=== PATIENT | female | born 1965 | race African-American/Black ===

== ENCOUNTER 2017-02-15 16:42 | Emergency (ER) | payer SELFPAY ==
[~2017-02-15 16:42] MED LIST: IBUP800T23 PO; LISI20 PO; METF-324 PO; METH750T2 PO
[2017-02-15 16:43] VITALS: BP 126/92; PULSE 91; RESP 14; TEMP 97.9; O2SAT 99
[2017-02-15] MEDS ORDERED: ROBA750T PO (18:18)
[2017-02-15] MEDS ORDERED: METF500T4 PO (18:18)
[2017-02-15] MEDS ORDERED: LISI-515 PO (18:18)
--- NOTE | 2017-02-15 18:31 | PD ---
HPI Chief Complaint: Skin Problem Time Seen by Provider: 18:31 Travel History International Travel<30 days: No Contact w/Intl Traveler<30days: No Traveled to known affect area: No History of Present Illness HPI 51-year-old female presents to emergency Department with complaint of ingrown toenail to left great toe that has been painful on and off for the last 3 weeks. Denies fever, vomiting. Denies erythema, edema to the toe. Denies drainage from the site of the toenail. The patient is also requesting a prescription refill on her lisinopril that she has not taken for 2 weeks. She has no other medical complaints. No known allergies. No other modifying factors or associated signs and symptoms. History Past Medical Histgory LMP: END OF JANUARY 2017 Hx Cancer: No Hx Chemotherapy: No Hx Radiation Therapy: No Social History Alcohol Use: No Tobacco Use: Yes (1/2 PPD) Allergies-Medications (Allergen,Severity, Reaction): Coded Allergies: No Known Allergies (Verified , 02/15/17) Reported Meds & Prescriptions Reported Meds & Active Scripts Active Reported Robaxin (Methocarbamol) 750 Mg Tab 750 Mg PO BID PRN Metformin ER (Metformin HCl) 500 Mg Marcela 500 Mg PO BID With evening meal Lisinopril 20 Mg Tab 20 Mg PO DAILY Review of Systems Except as stated in HPI: all other systems reviewed are Neg Physical Exam Narrative GENERAL: Well-nourished, well-developed female patient, in no acute distress SKIN: Warm and dry. Left great toe is without erythema, edema; no drainage noted; sensory intact; less than 3 second cap refill; tenderness on pronation to the medial aspect of the toenail. No signs of infection. HEAD: Atraumatic. Normocephalic. EYES: Pupils equal and round. No scleral icterus. No injection or drainage. ENT: Mucosa pink and moist. Airway patent. NECK: Trachea midline. CARDIOVASCULAR: Regular rate. RESPIRATORY: No accessory muscle use. GASTROINTESTINAL: Obese. MUSCULOSKELETAL: No obvious deformities. No clubbing. No cyanosis. No edema. NEUROLOGICAL: Awake and alert. Oriented 3. No obvious cranial nerve deficits. Motor grossly within normal limits. Normal speech. PSYCHIATRIC: Appropriate mood and affect; insight and judgment normal. Data Data Last Documented VS Vital Signs Date Time Temp Pulse Resp B/P Pulse Ox O2 Delivery O2 Flow Rate FiO2 02/15/17 16:43 97.9 91 14 126/92 99 MDM Medical Screen Exam Complete: Yes Emergency Medical Condition: No Differential Diagnosis Ingrown toenail, paronychia, medication refill Narrative Course 51-year-old female with ingrown toenail to the left great toe. No signs of infection. Patient is also requesting medication refill on lisinopril. She last took lisinopril 2 weeks ago. Her blood pressure is 126/92 and I do not feel comfortable giving the patient a prescription for blood pressure medication with a normal blood pressure. Discussed reasons for the patient to return to the emergency department. Instructed patient to follow up at [facility] and/or primary care provider. Vital signs are stable and the patient is stable for outpatient follow-up and treatment. The patient has no urgent or emergent medical complaints. There is no emergent or urgent medical need at this time. I instructed the patient to follow up with their primary care provider. A medical screening exam was performed: At the time of evaluation the presenting medical condition was determined not to be of an emergent nature. The patient was given the option of receiving additional care, but declined. Patient was given options for additional community resources from which to obtain care. The Patient Has Been advised to seek medical attention for their presenting complaint. The patient has been advised to return to the ER at any time if an emergent condition develops. Primary Impression: Encounter for medical screening examination Condition: Stable Margret Castillo Feb 15, 2017 18:31
== END 2017-02-15 18:42 | disposition left against medical advice (07) ==
LOC: NEPK 16:42
DX: L60.0 Ingrowing nail (principal)
CPT/HCPCS: 99281

== ENCOUNTER 2018-07-31 01:24 | Observation (INO) ==
[2018-07-31] MEDS ORDERED: Morphine Sulfate Inj 8 MG/ML Vial IV.PUSH ONE (02:14)
[2018-07-31] MEDS ORDERED: Sod Chloride 0.9% Inj 1,000 ML IV.SIG SCH (02:15)
[2018-07-31 02:40] LABS: Baso % (Auto) 0.7 % (0.0-2.0); Eos # (Auto) 0.1 th/mm3 (0.0-0.4); Eos % (Auto) 1.3 % (0.0-4.0); Hematocrit 43.3 % (35.0-46.0); Hemoglobin 14.3 gm/dL (11.6-15.3); Lymph # (Auto) 2.5 th/mm3 (1.0-4.8); Lymph % (Auto) 42.4 % (9.0-44.0); Mean Corpuscular Hemoglobin 29.1 pg (27.0-34.0); Mean Corpuscular Volume 88.3 fL (80.0-100.0); Mono # (Auto) 0.3 th/mm3 (0.0-0.9); Mono % (Auto) 4.3 % (0.0-8.0); Neut # (Auto) 3.1 th/mm3 (1.8-7.7); Neut % (Auto) 51.3 % (16.0-70.0); Platelet Count 272 th/mm3 (150-450); Red Cell Distribution Width 14.4 % (11.6-17.2)
--- NOTE | 2018-07-31 02:47 | ED ---
HPI General Chief Complaint: Abdominal Pain Stated Complaint: n/v/abd pain Time Seen by Provider: 07/31/18 02:12 Source: patient Mode of arrival: ambulatory Limitations: no limitations History of Present Illness HPI narrative: 52-year-old female came to the emergency room with history of severe abdominal pain that has been in tractable for past 48 hours. Patient was in the emergency room 2 days back and was evaluated and diagnosed with acute pancreatitis. He was discharged home on medications. However patient says that she has been unable to keep the medications down since she cannot stop vomiting. She appeared to be in significant distress and crying. She says the pain is all over her abdomen without radiation. No aggravating or relieving factors identified. Patient has history of hypertension and diabetes and does not drink alcohol. Related Data Home Medications Medication Instructions Recorded Confirmed losartan 50 mg PO DAILY 07/29/18 07/31/18 omeprazole 20 mg PO DAILY 07/29/18 07/31/18 rosuvastatin 5 mg PO DAILY 07/31/18 07/31/18 Previous Rx's Medication Instructions Recorded alum-mag hydroxide-simeth [Maalox 5 ml PO Q6H PRN #355 ml 07/29/18 Maximum Strength] dicyclomine 10 mg PO TID PRN #20 cap 07/29/18 famotidine-Ca carb-mag hydrox 1 tab PO DAILY PRN #30 tab 07/29/18 [Pepcid Complete] ondansetron [Zofran ODT] 4 mg PO Q6-8H PRN #20 tab 07/29/18 Allergies Allergy/AdvReac Type Severity Reaction Status Date / Time No Known Allergies Allergy Unverified 07/31/18 01:26 Review of Systems ROS: all other systems reviewed are negative [facility] Medical History Medical History Diabetes (Acute) Gastric ulcer (Acute) Hypertension (Acute) Surgical History Surgical History Hx of cholecystectomy (Acute) Social History Social History Substance History: No History of Abuse Second Hand Smoke Exposure: Yes Smoking Status: Current every day smoker Tobacco Type: Cigarettes How Often Do You Have a Drink Containing Alcohol: Never Recent Travel in [facility] within the Last 8 Weeks: No Recent Out of Country Travel within the Last 8 Weeks: No Immunization History Tetanus Immunization: Unsure Exam Narrative Exam Narrative: GENERAL: Awake, alert, morbidly obese, significant distress SKIN: Focused skin assessment warm/dry. HEAD: Atraumatic. Normocephalic. EYES: Pupils equal and round. No scleral icterus. No injection or drainage. ENT: No nasal bleeding or discharge. Mucous membranes pink and moist. NECK: Trachea midline. No JVD. CARDIOVASCULAR: Regular rate and rhythm. No murmur appreciated. RESPIRATORY: No accessory muscle use. Clear to auscultation. Breath sounds equal bilaterally. GASTROINTESTINAL: Abdomen soft, non-tender, nondistended. Hepatic and splenic margins not palpable. MUSCULOSKELETAL: No obvious deformities. No clubbing. No cyanosis. No edema. NEUROLOGICAL: Awake and alert. No obvious cranial nerve deficits. Motor grossly within normal limits. Normal speech. PSYCHIATRIC: Appropriate mood and affect; insight and judgment normal. Course Initial Documented Vital Signs Temperature 97.8 F 07/31/18 01:28 Pulse Rate 96 H 07/31/18 01:28 Respiratory Rate 20 07/31/18 01:28 Blood Pressure 144/83 H 07/31/18 01:28 Pulse Oximetry 95 07/31/18 01:28 Last Documented Vital Signs Temperature 97.5 F L 08/01/18 08:00 Pulse Rate 81 08/01/18 12:00 Respiratory Rate 18 08/01/18 12:00 Blood Pressure 138/75 08/01/18 12:00 Pulse Oximetry 95 08/01/18 12:00 Medical Decision Making [facility] Narrative Medical decision making narrative: 2:46 AM patient is being treated for intractable pain and vomiting and outpatient treatment failure. I have ordered pain medication here but patient would require admission for this. I discussed the case with the hospitalist who has accepted the patient. Awaiting for blood test result. Patient is aware of this plan and is accepted. Medical Screen Exam Complete: Yes Emergency Medical Condition: Yes Lab Data Result diagrams: 08/01/18 05:32 08/01/18 07:31 Lab Results 07/31/18 07/31/18 08/01/18 Range/Units 00:16 00:16 05:32 WBC 6.0 4.9 (4.0-11.0) th/mm3 RBC 4.90 4.85 (4.00-5.30) mil/mm3 Hgb 14.3 14.2 (11.6-15.3) gm/dL Hct 43.3 42.5 (35.0-46.0) % MCV 88.3 87.6 (80.0-100.0) fL MCH 29.1 29.3 (27.0-34.0) pg MCHC 33.0 33.5 (32.0-36.0) % RDW 14.4 14.5 (11.6-17.2) % Plt Count 272 258 (150-450) th/mm3 MPV 8.0 8.2 (7.0-11.0) fL Neut % (Auto) 51.3 46.0 (16.0-70.0) % Lymph % (Auto) 42.4 43.1 (9.0-44.0) % [place] % (Auto) 4.3 7.1 (0.0-8.0) % Eos % (Auto) 1.3 3.0 (0.0-4.0) % Baso % (Auto) 0.7 0.8 (0.0-2.0) % Neut # (Auto) 3.1 2.3 (1.8-7.7) th/mm3 Lymph # (Auto) 2.5 2.1 (1.0-4.8) th/mm3 [place] # (Auto) 0.3 0.3 (0.0-0.9) th/mm3 Eos # (Auto) 0.1 0.1 (0.0-0.4) th/mm3 Baso # (Auto) 0.0 0.0 (0.0-0.2) th/mm3 WBC Differential . . Differential Comment Auto diff final Auto diff final Hematology Comments Sodium 140 (136-145) meq/L Potassium 3.9 D (3.5-5.1) meq/L Chloride 105 (98-107) meq/L Carbon Dioxide 28.4 (21.0-32.0) meq/L Anion Gap 7 (5-15) meq/L BUN 11 (7-18) mg/dL Creatinine 0.82 (0.50-1.00) mg/dL Estimated GFR 88 L (>89) mL/min Random Glucose 95 (74-106) mg/dL Calcium 8.2 L (8.5-10.1) mg/dL Total Bilirubin 0.5 (0.2-1.0) mg/dL AST 14 L (15-37) U/L ALT 16 (10-53) U/L Alkaline Phosphatase 82 (45-117) U/L Total Protein 7.2 (6.4-8.2) g/dL Albumin 3.3 L (3.4-5.0) g/dL Lipase 937 H (73-393) U/L 08/01/18 Range/Units 07:31 WBC (4.0-11.0) th/mm3 RBC (4.00-5.30) mil/mm3 Hgb (11.6-15.3) gm/dL Hct (35.0-46.0) % MCV (80.0-100.0) fL MCH (27.0-34.0) pg MCHC (32.0-36.0) % RDW (11.6-17.2) % Plt Count (150-450) th/mm3 MPV (7.0-11.0) fL Neut % (Auto) (16.0-70.0) % Lymph % (Auto) (9.0-44.0) % [place] % (Auto) (0.0-8.0) % Eos % (Auto) (0.0-4.0) % Baso % (Auto) (0.0-2.0) % Neut # (Auto) (1.8-7.7) th/mm3 Lymph # (Auto) (1.0-4.8) th/mm3 [place] # (Auto) (0.0-0.9) th/mm3 Eos # (Auto) (0.0-0.4) th/mm3 Baso # (Auto) (0.0-0.2) th/mm3 WBC Differential Differential Comment Hematology Comments Sodium 140 (136-145) meq/L Potassium 3.7 (3.5-5.1) meq/L Chloride 105 (98-107) meq/L Carbon Dioxide 26.4 (21.0-32.0) meq/L Anion Gap 9 (5-15) meq/L BUN 10 (7-18) mg/dL Creatinine 0.75 (0.50-1.00) mg/dL Estimated GFR Greater than 89 (>89) mL/min Random Glucose 61 L (74-106) mg/dL Calcium 8.3 L (8.5-10.1) mg/dL Total Bilirubin 0.7 (0.2-1.0) mg/dL AST 27 (15-37) U/L ALT 20 (10-53) U/L Alkaline Phosphatase 79 (45-117) U/L Total Protein 6.9 (6.4-8.2) g/dL Albumin 3.3 L (3.4-5.0) g/dL Lipase 85 (73-393) U/L Discharge Plan Discharge Disposition Patient Disposition: 30 Still Patient Discharge Condition Condition: Stable Discharge Order Discharge Orders: Discharge Order (Routine); Ordered 08/01/18 Ordered By: Keena Kelsey Physicians Team ED Provider: Bertha Huggins Primary Care Provider: UNKNOWN, Attending Provider: Marcello Marsh Status ED Status: Left Department Discharge Information Discharge Date/Time: 07/31/18 03:55
[2018-07-31] MEDS ORDERED: HYDROmorphone PF Inj 2 MG/ML Vial IV.PUSH ONE (03:06)
[2018-07-31 03:08] LABS: Alanine Aminotransferase 16 U/L (10-53); Albumin 3.3 g/dL (3.4-5.0); Alkaline Phosphatase 82 U/L (45-117); Anion Gap 7 meq/L (5-15); Aspartate Aminotransferase 14 U/L (15-37); Blood Urea Nitrogen 11 mg/dL (7-18); Calcium 8.2 mg/dL (8.5-10.1); Carbon Dioxide 28.4 meq/L (21.0-32.0); Chloride 105 meq/L (98-107); Glomerular Filtration Rate 88 mL/min (>89); Glucose,Random 95 mg/dL (74-106); Lipase 937 U/L (73-393); Potassium 3.9 meq/L (3.5-5.1); Sodium 140 meq/L (136-145); Total Protein 7.2 g/dL (6.4-8.2)
[2018-07-31] MEDS ORDERED: Pantoprazole Inj 40 MG Vial IV.PUSH ONE (03:23)
[2018-07-31] MEDS ORDERED: Acetaminophen 325 MG Tablet PO PRN (03:24)
[2018-07-31] MEDS ORDERED: Bisacodyl 10 MG Supp RECTAL PRN (03:24)
[2018-07-31] MEDS ORDERED: HYDROmorphone PF Inj 1 MG/ML Ampul IV.PUSH PRN (03:30)
--- NOTE | 2018-07-31 03:54 | P.HPIM ---
History of Present Illness Primary Care Physician: UNKNOWN History of Present Illness: This is a 52-year-old female with a PMH of HTN and Tobacco Abuse who presented to ER with complaints of severe abdominal pain x2 days. Seen in ER on 07/29/18 for similar complaints, found to have pancreatitis w/ Lipase 688, CT Abd/Pelvis w/ nonspecific hypodense liver lesion, otherwise negative, ultimately d/c'd from ER, however returns now w/ ongoing pain. Pain is epigastric, constant, worse after eating, non-radiating, associated w/ nausea/vomiting. On arrival, BP 144/83, HR 96, O2 sat 95% on RA, Afebrile. Lipase 937. S/p Morphine IV in ER w/ minimal improvement. - Diagnosis (1) Pancreatitis (2) Intractable abdominal pain (3) Tobacco abuse Review of Systems PAST FAMILY HISTORY: Reviewed. No h/o DM or CAD All other systems reviewed negative except as stated in HPI [facility] - History History Provided By: Patient - Medical History Medical History: Medical History (Last Reviewed 07/31/18 @ 02:45 by Bertha Huggins MD) Diabetes Gastric ulcer Hypertension - Surgical History Surgical History: Surgical History (Last Reviewed 07/31/18 @ 02:45 by Bertha Huggins MD) Hx of cholecystectomy - Tobacco History Second Hand Smoke Exposure: Yes Tobacco Use In Past 30 Days: Yes Smoking Status: Current every day smoker Tobacco Type: Cigarettes - Alcohol History How Often Do You Have a Drink Containing Alcohol: Never - Substance Use History Substance History: No History of Abuse - Travel History Recent Travel in the [place] Within the Last 8 Weeks: No Recent Travel Out of the Country Within the Last 8 Weeks: No - Immunization History Tetanus Immunization: Unsure Medications and Allergies Active Medications: Active Medications Acetaminophen (Tylenol) 650 mg PO Q4H PRN PRN Reason: Temp > 100.4 Al Hydroxide/Mg Hydroxide (Milk Of Magnesia Liq) 30 ml PO Q12H PRN PRN Reason: Mild Constipation Bisacodyl (Dulcolax Supp) 10 mg RECTAL DAILY PRN PRN Reason: SEVERE CONSITIPATION Hydromorphone HCl (Dilaudid Pf Inj) 1 mg IV.PUSH Q4H PRN PRN Reason: PAIN 6-10 Sodium Chloride (Ns Inj) 1,000 mls @ 100 mls/hr IV.CONT .Q10H MARIXA Lactulose (Lactulose Liq) 30 ml PO DAILY PRN PRN Reason: SEVERE CONSITIPATION Ondansetron HCl (Zofran Inj) 4 mg IV.PUSH Q6H PRN PRN Reason: NAUSEA OR VOMITING Senna/Docusate Sodium (Holly-Colace) 1 tab PO BID [facility] Sennosides (Senokot) 17.2 mg PO Q12H PRN PRN Reason: Moderate Constipation Allergies Allergy/AdvReac Type Severity Reaction Status Date / Time No Known Allergies Allergy Unverified 07/31/18 01:26 Home Medications Medication Instructions Recorded Confirmed Type losartan 50 mg PO DAILY 07/29/18 07/31/18 History omeprazole 20 mg PO DAILY 07/29/18 07/31/18 History rosuvastatin 5 mg PO DAILY 07/31/18 07/31/18 History Exam Vital signs: Vital Signs 07/31/18 01:28 07/31/18 03:17 Temperature 97.8 F Pulse Rate 96 H 70 Respiratory Rate 20 18 Blood Pressure 144/83 H 140/80 Pulse Oximetry 95 95 Intake & Output 07/30/18 07/30/18 07/31/18 06:59 18:59 06:59 Weight 117.934 kg Narrative: PE: GENERAL: Middle-aged black female in no acute distress. SKIN: Focused skin assessment warm and dry. HEENT: PERRLA, EOMI. No scleral icterus or conjunctival pallor. No lid lag or facial droop. CARDIOVASCULAR: Regular rate and rhythm. No obvious murmurs to auscultation. No chest tenderness to palpation. RESPIRATORY: No obvious rhonchi or wheezing. Clear to auscultation. Breath sounds equal bilaterally. GASTROINTESTINAL: Abdomen soft, epigastric tenderness to palpation, nondistended. BS normal. MUSCULOSKELETAL: Extremities without clubbing, cyanosis, or edema. No obvious deformities. NEUROLOGICAL: Awake, alert and oriented x4. No focal neurologic deficits. Moving both upper and lower extremities spontaneously. PSYCHIATRIC: Appropriate mood and affect. Insight and judgment normal. Results - Labs CBC & Chem 7: 07/31/18 00:16 07/31/18 00:16 Labs: Short CBC 07/31/18 Range/Units 00:16 WBC 6.0 (4.0-11.0) th/mm3 Hgb 14.3 (11.6-15.3) gm/dL Hct 43.3 (35.0-46.0) % Plt Count 272 (150-450) th/mm3 BMP 07/31/18 00:16 Sodium 140 Potassium 3.9 D Chloride 105 Carbon Dioxide 28.4 BUN 11 Creatinine 0.82 Calcium 8.2 L Liver Function 07/31/18 Range/Units 00:16 Total Bilirubin 0.5 (0.2-1.0) mg/dL AST 14 L (15-37) U/L ALT 16 (10-53) U/L Alkaline Phosphatase 82 (45-117) U/L Albumin 3.3 L (3.4-5.0) g/dL Caprini VTE Risk Assessment Caprini VTE Risk Assessment: No/Low Risk (score <= 1) Caprini Risk Assessment Model: Point Value = 1 Point Value = 2 Point Value = 3 Point Value = 5 Age 41-60 Minor surgery BMI > 25 kg/m2 Swollen legs Varicose veins or History of unexplained or recurrent spontaneous Oral contraceptives or hormone replacement Sepsis (< 1 month) Serious lung disease, including pneumonia (< 1 month) Abnormal pulmonary function Acute myocardial infarction Congestive heart failure (< 1 month) History of inflammatory bowel disease Medical patient at bed rest Age 61-74 Arthroscopic surgery Major open surgery (> 45 min) Laparoscopic surgery (> 45 min) Malignancy Confined to bed (> 72 hours) Immobilizing plaster cast Central venous access Age >= 75 History of VTE Family history of VTE Factor V Leiden Prothrombin [id number] Lupus anticoagulant Anticardiolipin antibodies Elevated serum homocysteine Heparin-induced thrombocytopenia Other congenital or acquired thrombophilia Stroke (< 1 month) Elective arthroplasty Hip, pelvis, or leg fracture Acute spinal cord injury (< 1 month) Prophylaxis Regimen: Total Risk Factor Score Risk Level Prophylaxis Regimen 0-1 Low Early ambulation 2 Moderate Order ONE of the following: *Sequential Compression Device (SCD) *Heparin 5000 units SQ BID 3-4 Higher Order ONE of the following medications: *Heparin 5000 units SQ TID *Enoxaparin/Lovenox 40 mg SQ daily (WT < 150 kg, CrCl > 30 mL/min) *Enoxaparin/Lovenox 30 mg SQ daily (WT < 150 kg, CrCl > 10-29 mL/min) *Enoxaparin/Lovenox 30 mg SQ BID (WT < 150 kg, CrCl > 30 mL/min) AND/OR *Sequential Compression Device (SCD) 5 or more Highest Order ONE of the following medications: *Heparin 5000 units SQ TID (Preferred with Epidurals) *Enoxaparin/Lovenox 40 mg SQ daily (WT < 150 kg, CrCl > 30 mL/min) *Enoxaparin/Lovenox 30 mg SQ daily (WT < 150 kg, CrCl > 10-29 mL/min) *Enoxaparin/Lovenox 30 mg SQ BID (WT < 150 kg, CrCl > 30 mL/min) AND *Sequential Compression Device (SCD) Assessment and Plan - Assessment (1) Pancreatitis Code(s): K85.90 - Acute pancreatitis without necrosis or infection, unspecified Status: Acute (2) Intractable abdominal pain Code(s): R10.9 - Unspecified abdominal pain Status: Acute (3) Tobacco abuse Code(s): Z72.0 - Tobacco use Status: Acute - Plan A/P: 1. Pancreatitis: Lipase 937, recent ER presentation 07/29/18 for same, CT Abd/ Pelvis at that time w/ no acute findings, Lipase increased from 688. NPO, IVF, Protonix IV, analgesics/antiemetics 2. Intractable Abd Pain: secondary to above, Morphine IV w/ minimal improvement, will switch to Dilaudid IV. 3. Tobacco Abuse: Pt counselled. NicoDerm prn if needed. 4. DVT Prophylaxis: SCD/Teds 5. Social work for d/c planning as needed 6. Case discussed w/ ER physician at length, labs/records/imaging reviewed by me
[2018-07-31] MEDS: Sod Chloride 0.9% Inj 1,000 ML IV.CONT SCH ×2 (04:06→13:04)
[2018-07-31] MEDS: Senna/Docusate Sodium 8.6/50 MG Tablet PO SCH ×2 (09:14→22:52)
--- NOTE | 2018-07-31 09:42 | P.PNIM ---
Subjective Interval history: Follow up pancreatitis Patient reports abd pain, "a little better than is was," but still present offers no new concerns/complaints Physical Exam Vital signs: Last Vital Signs Temp 98.4 F 07/31/18 08:17 Pulse 65 07/31/18 08:17 Resp 20 07/31/18 08:17 BP 115/69 07/31/18 08:17 Pulse Ox 96 07/31/18 08:17 Intake & Output 07/29/18 07/30/18 07/31/18 08/01/18 06:59 06:59 06:59 06:59 Intake Total 1000 / 1000 Balance 1000 / 1000 Weight 117.934 kg Narrative: GENERAL: This is a well-nourished, well-developed patient, in no apparent distress. CARDIOVASCULAR: Regular rate and rhythm RESPIRATORY: Clear to auscultation. Breath sounds equal bilaterally. GASTROINTESTINAL: Abdomen soft, tender epigastric area, nondistended. MUSCULOSKELETAL: Extremities without clubbing, cyanosis, or edema. NEURO: Alert & Oriented . Moves all ext x4 Results Labs CBC & Chem 7: 07/31/18 00:16 07/31/18 00:16 Assessment and Plan (1) Pancreatitis: Code(s): K85.90 - Acute pancreatitis without necrosis or infection, unspecified Status: Acute (2) Intractable abdominal pain: Code(s): R10.9 - Unspecified abdominal pain Status: Acute (3) Tobacco abuse: Code(s): Z72.0 - Tobacco use Status: Acute Plan 1. Pancreatitis: Lipase 937, recent ER presentation 07/29/18 for same, CT Abd/ Pelvis 07/29/18 1. Nonspecific 11 mm hypodense lesion in the posterior right lobe of the liver.2. Otherwise, negative CT abdomen/pelvis with contrast., Lipase increased from 688. NPO, IVF, Protonix IV, analgesics/antiemetics -Patient will need follow up regarding hypodense lesion i the liver once acute pancreatitis resolved 2. Intractable Abd Pain: secondary to above, Morphine IV w/ minimal improvement, Now on Dilaudid IV. 3. Tobacco Abuse: Pt counselled. NicoDerm prn if needed. 4. DVT Prophylaxis: SCD/Teds recheck lipase in AM Discussed with patient, nurse and supervising physician Dr. Marsh Progress Note: Quality VTE Deep Vein Thrombosis/Pulmonary Embolism Present on Admission: No _ (1) Pancreatitis Qualifiers: Acute pancreatitis complication: Chronicity: Pancreatitis type:
[2018-07-31] MEDS: HYDROmorphone PF Inj 1 MG/ML Ampul IV.PUSH PRN ×4 (09:43→22:30)
[2018-08-01] MEDS: HYDROmorphone PF Inj 1 MG/ML Ampul IV.PUSH PRN ×3 (01:31→09:55)
[2018-08-01] MEDS: Sod Chloride 0.9% Inj 1,000 ML IV.CONT SCH ×2 (05:02→08:52)
[2018-08-01 06:50] LABS: Baso % (Auto) 0.8 % (0.0-2.0); Eos # (Auto) 0.1 th/mm3 (0.0-0.4); Hematocrit 42.5 % (35.0-46.0); Hemoglobin 14.2 gm/dL (11.6-15.3); Lymph # (Auto) 2.1 th/mm3 (1.0-4.8); Lymph % (Auto) 43.1 % (9.0-44.0); Mean Corpuscular HGB Conc 33.5 % (32.0-36.0); Mean Corpuscular Hemoglobin 29.3 pg (27.0-34.0); Mean Corpuscular Volume 87.6 fL (80.0-100.0); Mean Platelet Volume 8.2 fL (7.0-11.0); Mono # (Auto) 0.3 th/mm3 (0.0-0.9); Mono % (Auto) 7.1 % (0.0-8.0); Neut # (Auto) 2.3 th/mm3 (1.8-7.7); Platelet Count 258 th/mm3 (150-450); Red Blood Count 4.85 mil/mm3 (4.00-5.30); Red Cell Distribution Width 14.5 % (11.6-17.2); White Blood Count 4.9 th/mm3 (4.0-11.0)
[2018-08-01] MEDS: Senna/Docusate Sodium 8.6/50 MG Tablet PO SCH (08:51)
[2018-08-01 08:57] VITALS: RESP 18; TEMP 97.5; O2SAT 95
[2018-08-01 09:29] LABS: Alanine Aminotransferase 20 U/L (10-53)
[2018-08-01 09:30] LABS: Albumin 3.3 g/dL (3.4-5.0); Anion Gap 9 meq/L (5-15); Aspartate Aminotransferase 27 U/L (15-37); Blood Urea Nitrogen 10 mg/dL (7-18); Calcium 8.3 mg/dL (8.5-10.1); Carbon Dioxide 26.4 meq/L (21.0-32.0); Chloride 105 meq/L (98-107); Glomerular Filtration Rate Greater Than 89 mL/min (>89); Glucose,Random 61 mg/dL (74-106); Lipase 85 U/L (73-393); Potassium 3.7 meq/L (3.5-5.1); Sodium 140 meq/L (136-145)
[2018-08-01 09:31] LABS: Alkaline Phosphatase 79 U/L (45-117); Total Protein 6.9 g/dL (6.4-8.2)
[2018-08-01 12:17] VITALS: BP 138/75; PULSE 81
--- NOTE | 2018-08-01 13:02 | P.PN ---
Subjective Interval history: Patient seen lying in bed. She tells me that her pain is much better and that she would like to try eating. Currently does not have any nausea. Has not vomited. No chest pain or shortness of breath. No fever or chills. Discussed findings of lesion on liver per CT. Patient understands that she should follow-up with this on an outpatient basis as soon as her pancreatitis resolved. Physical Exam Vital signs: Vital Signs 07/31/18 16:36 07/31/18 20:00 07/31/18 23:42 Temperature 98.5 F 97.8 F 98.0 F Pulse Rate 63 60 63 Respiratory Rate 20 22 20 Blood Pressure 136/76 148/65 H 143/79 H Pulse Oximetry 95 94 L 94 L 08/01/18 04:00 08/01/18 08:00 08/01/18 12:00 Temperature 98.5 F 97.5 F L Pulse Rate 58 L 71 81 Respiratory Rate 20 18 18 Blood Pressure 130/86 178/106 H 138/75 Pulse Oximetry 94 L 95 95 Intake & Output 07/31/18 08/01/18 08/01/18 18:59 06:59 18:59 Intake Total 1000 / 1000 950 / 950 1000 / 1000 Balance 1000 / 1000 950 / 950 1000 / 1000 Weight 134.7 kg Intake: IV 1000 / 1000 950 / 950 1000 / 1000 NS Inj 1,000 ML @ 100 mls/hr IV 1000 / 1000 950 / 950 1000 / 1000 .CONT .Q10H MARIXA Rx#:[id number] Other: # Voids 2 # Urine Diapers 2 # Bowel Movements 0 Narrative: GENERAL: This is a well-nourished, well-developed patient, in no apparent distress. CARDIOVASCULAR: Regular rate and rhythm RESPIRATORY: Clear to auscultation. Breath sounds equal bilaterally. GASTROINTESTINAL: Abdomen soft, tender epigastric area, nondistended. Normal bowel sounds. MUSCULOSKELETAL: Extremities without clubbing, cyanosis, or edema. NEURO: Alert & Oriented . Moves all ext x4. Results - Labs CBC & Chem 7: 08/01/18 05:32 08/01/18 07:31 Laboratory Results - last 24 hr 08/01/18 08/01/18 05:32 07:31 WBC 4.9 RBC 4.85 Hgb 14.2 Hct 42.5 MCV 87.6 MCH 29.3 MCHC 33.5 RDW 14.5 Plt Count 258 MPV 8.2 Neut % (Auto) 46.0 Lymph % (Auto) 43.1 [place] % (Auto) 7.1 Eos % (Auto) 3.0 Baso % (Auto) 0.8 Neut # (Auto) 2.3 Lymph # (Auto) 2.1 [place] # (Auto) 0.3 Eos # (Auto) 0.1 Baso # (Auto) 0.0 WBC Differential . Differential Comment Auto diff final Hematology Comments Sodium 140 Potassium 3.7 Chloride 105 Carbon Dioxide 26.4 Anion Gap 9 BUN 10 Creatinine 0.75 Estimated GFR Greater than 89 Random Glucose 61 L Calcium 8.3 L Total Bilirubin 0.7 AST 27 ALT 20 Alkaline Phosphatase 79 Total Protein 6.9 Albumin 3.3 L Lipase 85 Assessment and Plan - Assessment (1) Pancreatitis Code(s): K85.90 - Acute pancreatitis without necrosis or infection, unspecified Status: Acute (2) Intractable abdominal pain Code(s): R10.9 - Unspecified abdominal pain Status: Acute (3) Tobacco abuse Code(s): Z72.0 - Tobacco use Status: Acute - Plan 1. Pancreatitis: Lipase 937, recent ER presentation 07/29/18 for same, -CT Abd/Pelvis 07/29/18 1. Nonspecific 11 mm hypodense lesion in the posterior right lobe of the liver - outpatient follow up -Lipase now WNL -Protonix IV, analgesics/antiemetics -Advance diet as tolerated 2. Intractable Abd Pain: secondary to above, Morphine IV w/ minimal improvement, Now on Dilaudid IV. Improving. 3. Tobacco Abuse: Pt counselled. NicoDerm prn if needed. 4. DVT Prophylaxis: SCD/Teds Discussed with patient, nurse and supervising physician Dr. Marsh
--- NOTE | 2018-08-01 14:28 | P.DS ---
Date of admission: 07/31/18 03:16 Primary care physician: UNKNOWN Attending physician on discharge: Marcello Marsh Anticipated date of discharge: 08/01/18 Brief History from admission: This is a 52-year-old female with a PMH of HTN and Tobacco Abuse who presented to ER with complaints of severe abdominal pain x2 days. Seen in ER on 07/29/18 for similar complaints, found to have pancreatitis w/ Lipase 688, CT Abd/Pelvis w/ nonspecific hypodense liver lesion, otherwise negative, ultimately d/c'd from ER, however returns now w/ ongoing pain. Pain is epigastric, constant, worse after eating, non-radiating, associated w/ nausea/vomiting. On arrival, BP 144/83, HR 96, O2 sat 95% on RA, Afebrile. Lipase 937. S/p Morphine IV in ER w/ minimal improvement. DS: Diagnosis - Discharge Diagnosis (1) Pancreatitis Status: Resolved (2) Intractable abdominal pain Status: Resolved (3) Tobacco abuse Status: Chronic (4) Liver lesion Status: Acute DS: Summary Hospital Course: Patient is a 52-year-old -[place] female who presented to the emergency room with abdominal pain and vomiting. Lipase 900+; return to WNL prior to discharge. CT abdomen pelvis 07/29/18 showed nonspecific 11 mm hypodense lesion in the posterior right lobe of the liver-patient educated on the importance of outpatient follow-up to evaluate this lesion. Tolerating a regular diet prior to discharge. Advised to avoid alcohol and spicy/fatty foods. - Time Spent with Patient Total time spent providing and/or coordinating discharge services: Less than 30 minutes - Quality: VTE Deep Vein Thrombosis/Pulmonary Embolism Present on Admission: No Exam Vital signs: Vital Signs 07/31/18 16:36 07/31/18 20:00 07/31/18 23:42 Temperature 98.5 F 97.8 F 98.0 F Pulse Rate 63 60 63 Respiratory Rate 20 22 20 Blood Pressure 136/76 148/65 H 143/79 H Pulse Oximetry 95 94 L 94 L 08/01/18 04:00 08/01/18 08:00 08/01/18 12:00 Temperature 98.5 F 97.5 F L Pulse Rate 58 L 71 81 Respiratory Rate 20 18 18 Blood Pressure 130/86 178/106 H 138/75 Pulse Oximetry 94 L 95 95 Intake & Output 07/31/18 08/01/18 08/01/18 18:59 06:59 18:59 Intake Total 1000 / 1000 950 / 950 1000 / 1000 Balance 1000 / 1000 950 / 950 1000 / 1000 Weight 134.7 kg Intake: IV 1000 / 1000 950 / 950 1000 / 1000 NS Inj 1,000 ML @ 100 mls/hr IV 1000 / 1000 950 / 950 1000 / 1000 .CONT .Q10H MARIXA Rx#:[id number] Other: # Voids 2 # Urine Diapers 2 # Bowel Movements 0 Narrative: GENERAL: This is a well-nourished, well-developed patient, in no apparent distress. CARDIOVASCULAR: Regular rate and rhythm RESPIRATORY: Clear to auscultation. Breath sounds equal bilaterally. GASTROINTESTINAL: Abdomen soft, tender epigastric area, nondistended. Normal bowel sounds. MUSCULOSKELETAL: Extremities without clubbing, cyanosis, or edema. NEURO: Alert & Oriented . Moves all ext x4. Results Procedures completed during hospitalization: none Labs on day of discharge: Labs from last 24 hours 08/01/18 08/01/18 07:31 05:32 WBC 4.9 RBC 4.85 Hgb 14.2 Hct 42.5 MCV 87.6 MCH 29.3 MCHC 33.5 RDW 14.5 Plt Count 258 MPV 8.2 Neut % (Auto) 46.0 Lymph % (Auto) 43.1 [place] % (Auto) 7.1 Eos % (Auto) 3.0 Baso % (Auto) 0.8 Neut # (Auto) 2.3 Lymph # (Auto) 2.1 [place] # (Auto) 0.3 Eos # (Auto) 0.1 Baso # (Auto) 0.0 WBC Differential . Differential Comment Auto diff final Hematology Comments Sodium 140 Potassium 3.7 Chloride 105 Carbon Dioxide 26.4 Anion Gap 9 BUN 10 Creatinine 0.75 Estimated GFR Greater than 89 Random Glucose 61 L Calcium 8.3 L Total Bilirubin 0.7 AST 27 ALT 20 Alkaline Phosphatase 79 Total Protein 6.9 Albumin 3.3 L Lipase 85 Discharge Plan - Discharge Disposition Patient Disposition: 01 Discharge Home - Discharge Condition Condition: Stable - Discharge Order Discharge Orders: Discharge Order (Routine); Ordered 08/01/18 Ordered By: Keena Kelsey - Physicians Team Primary Care Provider: UNKNOWN, Attending Provider: Marcello Marsh
== END 2018-08-01 14:45 | disposition home or self-care (01) ==
LOC: NEDA 01:24 → NEPC 01:24 → NEPGCP 03:49
PROVIDERS: ADMIT Internal Medicine; ATTEND Internal Medicine
DX: E66.01 Morbid (severe) obesity due to excess calories; F17.210 Nicotine dependence, cigarettes, uncomplicated; K85.90 Acute pancreatitis without necrosis or infection, unspecified; Z79.899 Other long term (current) drug therapy; K76.9 Liver disease, unspecified; I10 Essential (primary) hypertension; E11.9 Type 2 diabetes mellitus without complications